=== PATIENT | male | born 2000 | race Caucasian/White ===

== ENCOUNTER 2025-03-24 08:37 | Outpatient (AMB) | payer OTHER, SELFPAY ==
--- NOTE | 2025-03-24 08:46 | A.OFFPC_ITS ---
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 Intake Note: patient here for new patient visit Litigation Attorney Required: No Allergies No Known Allergies Allergy (Verified 03/24/25 09:08) Medication List - Last Reconciled 03/24/25 by Nancy Castorena CNP No Known Home Meds Tobacco use date assessed: 03/24/25 Dental Screening Dental Screen Date: 03/24/25 Did you have a dental visit in the last 12 months?: Yes Did you have a dental problem in the last 6 months where you did not have access to dental care?: No Was dental information given to patient?: Patient has dentist HPI HPI Comments History of Present Illness Details 24-year-old male presents to establish c are. [facility]CP? [facility] Last office visit/CPE/labs - About 5 years Acute issue(s) - Reports diarrhea after consuming greas y foods and diary products with occasional abdominal pain. Denies bloody stool. Symptoms ongoing for a few years. - Reports forgetfulness with short-term memory recall daily since high school. He played football in High school for few years and banged his head during plays. Denies headache or other associated symptoms Past Medical History - GERD Surgical History - Torn right ACL repair Family History - Mom: Uterine cancer Social History - Nonsmoker. Does not vape. Drinks 2 bee rs once or twice monthly. Denies recreational drug use - Has been making healthy dietary choice s. Exercises routinely. Reports difficulty staying asleep, snores, and never had a sleep study, declines sleep study Health maintenance - Last eye exam was 8-9 months ago. Does not recall name of provider or practice. Record not currently available - Last dental visit was a month ago. - Last tetanus vaccine unknown - Has not been vaccinated for the flu ; declines vaccination Specialists - None PFSH Medical History (Updated 03/24/25 @ 09:36 by Nancy Castorena CNP) Torn ACL History of gastroesophageal reflux (GERD) Family History (Updated 03/24/25 @ 08:58 by CHENCHO Jones) Mother Uterus cancer Social History (Updated 03/24/25 @ 08:53 by CHENCHO Jones) Housing: House Patient Tobacco Use Status: Never used Tobacco e-Cigarette/Vaping Use: Never Used Second Hand Smoke Exposure: No service: No Current occupational status: student Current occupational exposures/hazards: No Cognitive needs: No Hearing needs: No Vision needs: No Questionnaire PHQ-9 Over the last 2 weeks, how often have you been bothered by any of the following problems? 1. Little interest or pleasure in doing things: not at all 2. Feeling down, depressed, or hopeless: not at all 3. Trouble falling or staying asleep, or sleeping too much: not at all 4. Feeling tired or having little energy: more than half the days 5. Poor appetite or overeating: not at all 6. Feeling bad about yourself - or that you are a failure or have let yourself or your family down: not at all 7. Trouble concentrating on things, such as reading the newspaper or watching television: not at all 8. Moving or speaking so slowly that other people could have noticed. Or the opposite - being so fidgety or restless that you have been moving around a lot more than usual: not at all 9. Thoughts that you would be better off or of hurting yourself in some way: not at all Total score: 2 Depression Screening Interpretation: Negative Depression Screening Done: Yes 48276 - PHQ-9 Billing: Yes Source: Developed by Drs. Miguel Angel Seaman, Luciana Flores, Bill Walker and colleagues, with an educational estefani from [employer]. Thrive Questionnaire Date Thrive assessed: 03/24/25 I am a: Patient What is your living situation today?: I have a steady place to live Within the past 12 months, did the food you bought not last and you didn't have the money to get more?: Never true Within the past 12 months, did you worry whether your food would run out before you got money to buy more?: Never true Do you have trouble paying for medicines?: No Do you have trouble getting transportation to medical appointments?: No Do you have trouble paying your heating and electricity bill?: No Do you have trouble taking care of your child, family member or friend?: No Do you have trouble with day-to-day activities such as bathing, preparing meals, shopping, managing finances, etc.?: No Are you currently unemployed and looking for a job?: No Are you interested in more education?: No Please select the resources that you would like help with: None Currently or been in a relationship where the following occur: No concerns r eported THRIVE Score: 0 AUDIT C Alcohol Use Questionnaire (AUDIT-C) 1. How often do you have a drink containing alcohol?: Monthly or less 2. How many drinks containing alcohol do you have on a typical day when you are drinking?: 1 or 2 3. How often do you have six or more drinks on one occasion?: Never Total Score: 1 Score Reviewed/Action Taken: Yes BARBARA-7 AMB Questionnaire BARBARA-7 Date BARBARA - 7 assessed: 03/24/25 Feeling nervous, anxious, or on edge: 0 = Not at all Not being able to stop or control worryin = Not at all Worrying too much about different things: 1 = Several days Trouble relaxin = Not at all Being so restless that it is hard to sit still: 0 = Not at all Becoming easily annoyed or irritable: 1 = Several days Feeling afraid as if something awful might happen: 0 = Not at all Total BARBARA-7 score (0-4 normal; 5-9 mild; 10-14 moderate; 15-21 severe): 2 Source: Developed by Drs. Miguel Angel Seaman, Luciana Flores, Bill Walker and colleagues, with an educational estefani from [employer]. BARBARA-7 Assessment Billing BARBARA-7 Assessment Tool: BARBARA-7 Assessment 57637 Review of Systems Const Details: Denies chills, Denies fatigue, Denies fever(s), Denies headache(s) and Denies weakness HEENT Denies change in vision, Denies dizziness, Denies headache(s), Denies hearing loss, Denies nasal congestion, Denies sinus pain, Denies sinus pressure and Denies sore throat Card Denies chest pain, Denies lightheadedness, Denies dyspnea and Denies other (palpitations) Resp Denies cough, Denies dyspnea and Denies wheezing GI Reports diarrhea, Denies abdominal pain, Denies melena, Denies hematochezia, Denies dyspepsia and Denies nausea Denies hematuria and Denies dysuria Musc Denies abnormal gait, Denies myalgias, Denies arthralgias, Denies numbness and Denies tingling Skin/Breast Denies rash, Denies unusual bruising and Denies wounds Neuro Denies abnormal gait, Denies dizziness, Denies headache(s), reports forgetfulness, Denies numbness, Denies Sensory deficit (Neuro), Denies tingling and Denies weakness Psych Reports forgetfulness, Denies anxiety, Denies depression Endo Denies cold intolerance, Denies fatigue, Denies heat intolerance, Denies polydipsia and Denies polyuria Michael/Lymph Denies easy bleeding and Denies easy bruising Aller/Immun Denies wheezing Physical exam (Primary Care) Vital Signs: Last Vital Signs Temp 97.9 F 03/24/25 08:54 Pulse 86 03/24/25 08:54 Resp 16 03/24/25 08:54 BP 117/58 L 03/24/25 08:54 Pulse Ox 97 03/24/25 08:54 Oxygen Delivery Method Room Air 03/24/25 08:54 BMI result Body Mass Index 43.1 Tobacco/Smoking Status: Tobacco use Status Tobacco use date assessed 03/24/25 03/24/25 08:54 Patient Tobacco Use Status Never used Tobacco 03/24/25 08:54 e-Cigarette/Vaping Use Never Used 03/24/25 08:54 PHQ-9: PHQ-9 Score PHQ-9: Total score 2 03/24/25 08:50 Depression Screening Interpretation: Negative Thrive Assessment: Date of Thrive Assessment Date Thrive assessed 03/24/25 03/24/25 08:50 Currently or been in a relationship where the following occur: No concerns reported Const Other: General: no acute distress, well developed, alert and awake Nutritional Appearance: well nourished Orientation/consciousness: patient oriented x3 HENMT Head: Yes normocephalic and Yes atraumatic Ears: hearing grossly normal bilaterally and TM's normal bilaterally General nose exam: Normal external nose present and Normal nares present Mouth: Normal oral and palatal mucosa present and moist mucous membranes Teeth and gingiva: dentition normal Throat: Yes oropharynx normal Eyes Pupils: Equal, round and reactive pupils present and Pupil accommodation reflex normal EOM: EOMs intact bilaterally Neck Neck: Yes normal visual inspection, Yes no lymphadenopathy and Yes trachea midline Thyroid: Thyroid normal Carotids: no bruits Lymphatic: no lymphadenopathy noted Chest Chest palpation & inspection: normal inspection of the chest Resp Effort & Inspection: normal respiratory effort Auscultation: clear to auscultation bilaterally Cardio Rate: regular rate Rhythm: regular rhythm Heart sounds: S1 normal heart sound present, S2 normal heart sound present, no gallops, no murmurs and no rubs Bruits: no abdominal aortic bruits and no carotid bruits GI Palpation (GI): No Abdominal aortic bruit present, Soft to palpation, nontender, No hepatosplenomegaly present and No Rebound tenderness present Auscultation: normal bowel sounds General: Yes no CVA tenderness Back/Spine/Pelvis Back: no CVA tenderness Cervical Spine: cervical ROM normal and No Cervical spine tenderness Thoracic/Lumbar Spine: thoraco-lumbar ROM normal, No pain with thoraco-lumbar ROM, No thoracic spinal tenderness and No lumbar spinal tenderness Skin General: warm and dry. Normal skin color. Normal skin turgor Lesions: no lesions Rashes: no rashes Trauma: no lacerations or abrasions Wounds: no wounds Nails: normal Neuro General: patient oriented x3, gait normal and CN's II-XI intact bilaterally Cranial nerves: Yes Equal, round and reactive pupils present Cognition (Neuro): normal cognition Gait exam (Neuro): Normal gait present Motor exam (neuro): 5/5 motor strength present throughout Sensory Exam: No Sensory deficit (Neuro) Deep tendon reflexes (DTR's): Right patellar reflex intensity grade: 2+ and Left patellar reflex intensity grade: 2+ Extrem General: Yes normal to inspection, No edema and No calf tenderness Psych Appearance: grossly normal Affect: normal affect Attitude: cooperative Thought process: Normal thought process present Coding Level of Care Code New Pt Level 4 (65205) New Pt Prev Care 18-39yr(57316 Diagnoses Normal physical examination, routine Z00.00 Sleep disturbance G47.9 Forgetfulness R68.89 Diarrhea R19.7 Laboratory tests ordered as part of a complete physical exam (CPE) Z00.00 Morbid obesity with BMI of 40.0-44.9, adult E66.01; Z68.41 Additional Codes BARBARA-7 Assessment Billing - BARBARA-7 Assessment Tool: BARBARA-7 Assessment 79291 ([id number]) PHQ-9 - 00141 - PHQ-9 Billing: Yes ([id number]) Assessment & Plan Assessment & Plan (1) Normal physical examination, routine: Code(s): Z00.00 - Encounter for general adult medical examination without abnormal findings Category: Medical Plan: No significant functional limitations noted. Healthy diet and routine exercise encouraged. Perform fasting lab work and follow-up for telehealth visit for labs review in 2-4 weeks. Return sooner with symptoms or concerns. Verbalized understanding and agreed with the plan. (2) Sleep disturbance: Code(s): G47.9 - Sleep disorder, unspecified Category: Medical Plan: Reports difficulty staying asleep, snores, and never had a sleep study, declines sleep study. Declines referral for sleep studies. Instructed on sleep hygiene. Routine exercise encouraged. Follow-up as needed. Verbalized understanding and agreed with the plan. (3) Forgetfulness: Code(s): R68.89 - Other general symptoms and signs Category: Medical Plan: Reports forgetfulness with short-term memory recall daily since high school. He played football in High school for few years and banged his head during plays. Denies headache or other associated symptoms. Normal physical exam. No focal neuro deficits. Will check labs, including thyroid and vitamin-D level and make changes as needed. Follow-up with worsening or new symptoms. Verbalized understanding and agreed with the plan. (4) Diarrhea: Code(s): R19.7 - Diarrhea, unspecified Category: Medical Plan: Reports diarrhea after consuming greasy foods and diary products with occasional abdominal pain. Denies bloody stool. Symptoms ongoing for a few years. Encouraged to avoid any/greasy foods and diary products. May have lactose intolerance. May substitute diary products with lactaid. Follow-up with worsening or new symptoms. May refer to Gastroenterology. Verbalized understanding and agreed with the plan. (5) Laboratory tests ordered as part of a complete physical exam (CPE): Code(s): Z00.00 - Encounter for general adult medical examination without abnormal findings Category: Medical Plan: Fasting labs ordered as part of a complete physical exam. Advised to fast for at least 10 hours before getting labs drawn. May drink water Verbalized understanding and agreed with treatment plan. (6) Morbid obesity with BMI of 40.0-44.9, adult: Code(s): E66.01 - Morbid (severe) obesity due to excess calories; Z68.41 - Body mass index [BMI] 40.0-44.9, adult Category: Medical Plan: He currently weighs 259 lb, BMI is 43.1. Declines referral to switchboard troubleshooter/dietitian or weight management clinic. Healthy diet/weight management encouraged. Follow-up as needed. Verbalized understanding and agreed with the plan. Orders: Orders Complete Blood Count Auto Diff Today Z00.00 - Encounter for general adult medical examination without abnormal findings Lipid Panel Today Z00.00 - Encounter for general adult medical examination without abnormal findings Microalbumin, Random (w Creat) Today Z00.00 - Encounter for general adult medical examination without abnormal findings Comprehensive [place]. Panel Fast Today Z00.00 - Encounter for general adult medical examination without abnormal findings TSH reflex Free T4 Today Z00.00 - Encounter for general adult medical examination without abnormal findings UA CC w/rflx Micro + Cult Today Z00.00 - Encounter for general adult medical examination without abnormal findings Vitamin D 25-OH Total Today Z00.00 - Encounter for general adult medical exami [facility] without abnormal findings
[2025-03-24 08:54] VITALS: BP 117/58; PULSE 86; RESP 16; TEMP 36.6; O2SAT 97; BMI 43.1
--- OUTSIDE RECORDS SUMMARY | 2025-03-24 08:58 | XMS_ITS | Clinical Summary ---
Author Organization [facility] [place] [facility] lin Address [address] [facility] [employer] [place] [address] Care Team Providers Care Manager Business Banking Name Role Phone Pcp, No Primary Care Provider [phone] Immunizations Immunization Administration Dates Next Due Boostrix (Tdap) Prefilled Syringe 01/23/2023 Social History Tobacco Use Types Packs/Day Years Used Date Smoking Tobacco: Never Assessed Sex and Gender Information Value Date Recorded Sex Assigned at Not on file Legal Sex Male 12:29 PM EST Gender Identity Not on file Sexual Orientation Not on file Plan of Treatment Health Maintenance Due Date Last Done Comments Depression: Screening Annually using PHQ-2/9 in Adults 18 yrs or above (or HM Modifier)([facility]) 2019 Hepatitis C Virus Infection in Adolescents and Adults: Screening (or Modifier) ([facility]) 2019 SDOH Screening Reminder: Annually for all adults ([facility]) 2019 Tobacco Smoking Cessation: i n Adults excluding Women: Behavioral and Pharmacotherapy Interventions ([facility]) 2019 Flu Vaccination: Yearly for ages 18mos through 64 years (or Modifier)([facility]) 01/02/2025 COVID-19 Vaccine Screening: Initial Series and Booster Status ([facility]) ( - 2024- season) 2025 06/22/2021, 10/15/2020, 09/17/2020 DTaP/Tdap/Td Vaccines ([facility]) (7 - Td or Tdap) 01/23/2033 01/23/2023, 08/26/2012, 09/10/2006, Additional history exists Zoster/Shingles Vaccine Series Screening: Adults aged 18+ yrs (or HM Modifiers)([facility]) (1 of 2) 2051 09/10/2006, 06/05/2002 Pneumococcal Vaccination Screening: Pts 0-19 & 19-49 yrs of age ([facility]) Aged Out No longer eligible based on patient's age to complete this topic Medical Devices Not on file Care Teams Manager Business Banking Relationship Specialty Start Date End Date Pcp, No PCP - General Family Medicine 01/23/23
--- OUTSIDE RECORDS SUMMARY | 2025-03-24 08:58 | XMS_ITS | Clinical Summary ---
Author Organization [facility] Address [address] [place] [phone] Phone Care Team Providers Care Pharmacy Intake Coordinator Name Role Phone Pcp, Unknown Primary Care Provider Unavailabl e Allergies No known active allergies Medications No known medications Family History Relation Status Comments Father Alive Mother Alive Social History Tobacco Use Types Packs/Day Years Used Date Smoking Tobacco: Never Smokeless Tobacco: Never Tobacco Cessation:Counseling Given: Not Answered Alcohol Use Standard Drinks/Week Comments Yes 0 (1 standard drink = 0.6 oz pur e alcohol) no Education Answer Date Recorded Are you interested in more education? Not on julian e 12/07/2023 Are you concerned about learning? Not on file 12/07/2023 No 12/07/2023 No 12/07/2023 Digital Access Answer Date Recorded No 12/07/2023 No 12/07/2023 Reliable internet access at home? Not on file 12/07/2023 Device with a working camera? Not on file Sex and Gender Information Value Date Recorded Sex Assigned at Not on file Legal Sex Male 12:04 PM EDT Gender Identity Not on file Sexual Orientation Not on file Last Filed Vital Signs Vital Sign Reading Time Taken Comments Blood Pressure 119/66 12/27/2023 11:20 AM EDT Pulse 63 12/27/2023 11:20 AM EDT Temperature - - Respiratory Rate - - Oxygen Saturation - - Inhaled Oxygen Concentration - - Weight 111.5 kg (245 lb 12.8 oz) 2023 11:20 AM EDT Height 166.4 cm (5' 5.5 ) 12/27/2023 11 :20 AM EDT Body Mass Index 40.28 12/27/2023 11:20 AM EDT Plan of Treatment Health Maintenance Due Date Last Done Comments Adult Td,Tdap Booster 2001 DEPRESSION SCREENING 2013 SMOKING Hx and SMOKELESS TOB ACCO SCREENING 2014 HPV VACCINES (1 - Male 3-dos e series) 2016 MENINGOCOCCAL VACCINES (B) ( 1 of 2 - Standard) 2017 HEPATITIS C SCREENING 2019 HIV ONE-TIME SCREENING (18-6 5 YEARS) 2019 INFLUENZA VACCINE (#1) 2025 COVID-19 VACCINE (1 - 2024-2 6 season) 2025 HEPATITIS A VACCINES Aged Out No long er eligible based on patient's age to complete this topic HIB VACCINES Aged Out No longer eligi ble based on patient's age to complete this topic MENINGOCOCCAL VACCINES (ACWY) Aged Out No longer eligible based on patient's age to complete this topic PNEUMOCOCCAL VACCINES (0-49 years) Aged Out No longer eligible based on patient's age to complete this topic Medical Devices Not on file Insurance [facility] [employer] DIRECT [facility] [employer] DIRECT [facility] [employer] DIRECT [facility] DIRECT [facility] [employer] DIRECT [facility] DIRECT Care Teams Pharmacy Intake Coordinator Relationship Specialty Start Date End Date Pcp, Unknown PCP - General 12/07/23 Additional Source Comments The information contained in this document represents components of the legal health record. It is not the complete legal health record.[facility]
== END 2025-03-24 09:26 | disposition home or self-care (01) ==
LOC: HO.HMCFM 08:38
PROVIDERS: PCP Nurse Practitioner Family; Visit Provider Nurse Practitioner Family
DX: Z00.00 Encounter for general adult medical examination without abnormal findings (principal); G47.9 Sleep disorder, unspecified; E66.01 Morbid (severe) obesity due to excess calories; Z68.41 Body mass index [BMI] 40.0-44.9, adult; R68.89 Other general symptoms and signs; R19.7 Diarrhea, unspecified

== ENCOUNTER → 2025-03-24 08:37 | Outpatient (BNVA) | payer OTHER, SELFPAY | PROVIDERS: PCP Nurse Practitioner Family; Visit Provider Nurse Practitioner Family | DX: Z00.00 Encounter for general adult medical examination without abnormal findings (principal); R10.9 Unspecified abdominal pain; G47.9 Sleep disorder, unspecified; R68.89 Other general symptoms and signs; R19.7 Diarrhea, unspecified; Z68.41 Body mass index [BMI] 40.0-44.9, adult | CPT/HCPCS: 96127; 99385 ==

== ENCOUNTER 2025-04-21 08:31 | Outpatient (REF) | payer OTHER, SELFPAY ==
[2025-04-21 12:00] LABS: MANUAL DIFF FLAG NO
[2025-04-21 12:07] LABS: Hematocrit 45.7 % (42.0-52.0); Hemoglobin 15.2 g/dl (14.0-18.0); Imm Gran Abs Auto 0.06 X10*3/uL (0.00-0.03); Imm Gran Pct Auto 0.6 % (0.0-0.4); Lymphocytes Absolute Auto 2.8 X10*3/uL (1.2-4.9); Mean Corpuscular HGB Conc 33.3 g/dl (31.0-36.0); Mean Corpuscular Hemoglobin 30.1 pg (27.0-33.0); Mean Corpuscular Volume 90.5 fL (80.0-98.0); NRBC Abs Auto 0.000 X10*3/uL (0.0-0.012); NRBC Pct Auto 0.0 /100WBC (0.0-0.2); Platelet Count 266 X10*3/uL (160-400); Red Blood Count 5.05 X10*6/uL (4.60-5.80); White Blood Count 10.2 X10*3/uL (4.8-10.8)
[2025-04-21 12:47] LABS: Alanine Aminotransferase 61 U/L (0-40); Albumin Level 4.7 g/dL (3.5-5.0); Alkaline Phosphatase 80 U/L (39-117); Anion Gap 13 (12-20); Aspartate Amino Transferase 38 U/L (5-37); Blood Urea Nitrogen 17 mg/dL (9-16); Calcium 9.7 mg/dL (8.4-10.2); Carbon Dioxide 26 mmol/L (22-29); Chloride 105 mmol/L (96-108); Cholesterol 205 mg/dL (<200); Estimated Glomerular Filt Rate > 60; HDL Cholesterol 37 mg/dL (>40); Potassium 3.6 mmol/L (3.3-5.1); Sodium 140 mmol/L (135-145); Total Protein 7.8 g/dL (6.5-8.0); Triglycerides 144 mg/dL (<150)
[2025-04-21 14:34] LABS: Appearance Urine Clear; Glucose Urine UA Negative (Negative); PH 5.5 (5.0-9.0); Specific Gravity - Urine 1.015 (1.005-1.025)
== END 2025-04-21 08:32 | disposition home or self-care (01) ==
LOC: HO.WFDLDS 08:31
PROVIDERS: Visit Provider Nurse Practitioner Family
DX: Z00.00 Encounter for general adult medical examination without abnormal findings (principal)
CPT/HCPCS: 36415; 80053; 80061; 81003; 82043; 82306; 82570; 84443; 85025

== ENCOUNTER 2025-04-28 11:55 | Outpatient (AMB) | payer OTHER, SELFPAY ==
--- NOTE | 2025-04-28 11:26 | MHC.PC.OV ---
Intake Visit Reasons: Tele 2-4 wks labs review Intake Note: patient here for 2-4 wks Telehealth follow up for labs review Pipe [employer] P[employer] Required: No Allergies No Known Allergies Allergy (Verified 04/28/25 11:27) Tobacco use date assessed: 04/28/25 Dental Screening Dental Screen Date: 04/28/25 Did you have a dental visit in the last 12 months?: Yes Did you have a dental problem in the last 6 months where you did not have access to dental care?: No Was dental information given to patient?: Patient has dentist HPI HPI Comments History of Present Illness Details 24-year-old male presents for a telehealth visit for review of recent lab results. He drinks 1-2 beers occasionally. His mom and dad has history of HLD. No acute symptoms at this time. [facility] Medical History (Updated 04/28/25 @ 12:12 by Nancy Castorena CNP) Torn ACL History of gastroesophageal reflux (GERD) Family History (Updated 03/24/25 @ 08:58 by CHENCHO Jones) Mother Uterus cancer Social History (Updated 03/24/25 @ 08:53 by CHENCHO Jones) Housing: House Patient Tobacco Use Status: Never used Tobacco e-Cigarette/Vaping Use: Never Used Second Hand Smoke Exposure: No service: No Current occupational status: student Current occupational exposures/hazards: No Cognitive needs: No Hearing needs: No Vision needs: No Questionnaire Thrive Questionnaire Date Thrive assessed: 03/24/25 BARBARA-7 AMB Questionnaire BARBARA-7 Date BARBARA - 7 assessed: 03/24/25 Source: Developed by Drs. Miguel Angel Seaman, Luciana Flores, Bill Walker and colleagues, with an educational estefani from [employer]. Review of Systems Const Details: Denies chills, Denies fatigue, Denies fever(s), Denies headache(s) and Denies weakness Cardiac Denies chest pain, Denies claudication, Denies leg edema, Denies lightheadedness, Denies palpitations, Denies dyspnea, Denies dyspnea on exertion, Denies orthopnea and Denies other (Loss of consciousness) Resp Denies cough, Denies excessive phlegm production, Denies dyspnea, Denies dyspnea on exertion, Denies snoring and Denies wheezing Physical exam (Primary Care) Tobacco/Smoking Status: Tobacco use Status Tobacco use date assessed 04/28/25 04/28/25 11:28 Patient Tobacco Use Status Never used Tobacco 04/28/25 11:28 e-Cigarette/Vaping Use Never Used 04/28/25 11:28 Thrive Assessment: Date of Thrive Assessment Date Thrive assessed 03/23/25 04/28/25 11:55 Const Other: Patient is alert and oriented x4 Telehealth Telehealth Telehealth Platform: Telephone Location of provider rendering services: practice address Location of patient: address on file Patient Identification confirmed using: Name, : Yes Telehealth method: voice only Patient verbally consented to treatment: Yes Patient verbally consented to billing insurance company: Yes Patient informed of any privacy concerns related to visit: Yes Coding Level of Care Code Tele Est Pt Level 3 (97248) Diagnoses Hypercholesterolemia E78.00 Transaminitis R74.01 Time Spent (min) 10 Assessment & Plan Assessment & Plan (1) Hypercholesterolemia: Code(s): E78.00 - Pure hypercholesterolemia, unspecified Category: Medical Plan: Recent total cholesterol and LDL levels are elevated, 205 and 140 respectively, HDL number is slightly low, 37. Advised to limit foods high in saturated fat and avoid the trans fat. Routine exercise encouraged. Fast for 10-12 hours, may drink water, and perform blood work a few days before next visit. Follow-up in 2 months for transfer of care with a new provider within the practice, hypercholesterolemia, and transaminitis. Return sooner with symptoms or concerns. Verbalized understanding and agreed with the plan. (2) Transaminitis: Code(s): R74.01 - Elevation of levels of liver transaminase levels Category: Medical Plan: Recent AST and ALT levels slightly elevated, 38 and 61 respectively. Likely hepatic steatosis. Healthy diet as weight management encouraged. Will recheck lipid panel levels in 2 months. Verbalized understanding and agreed with the plan. Orders: Orders Lipid Panel 2 Months E78.00 - Pure hypercholesterolemia, unspecified Liver Panel 2 Months R74.01 - Elevation of levels of liver transaminase levels
--- OUTSIDE RECORDS SUMMARY | 2025-04-28 15:41 | XMS_ITS | Clinical Summary ---
Author Organization [facility] Address [address] [place] [address] Phone Care Team Providers Care Finance Mgr Name Role Phone Pcp, Unknown Primary Care [...] topic Medical Devices Not on file Insurance [facility] [employer] DIRECT [facility] TranspondORCARE DIRECT [facility] CONNECTORCARE DIRECT [facility] DIRECT [facility] Care Teams Finance Mgr Relationship Specialty Start Date End Date Pcp, Unknown PCP - General 12/07/23 Additional Source Comments The information contained in this document represents components of the legal health record. It is not the complete legal health record.[facility]
== END 2025-04-28 13:45 | disposition home or self-care (01) ==
LOC: HO.HMCFM 11:55
PROVIDERS: PCP Nurse Practitioner Family; Visit Provider Nurse Practitioner Family
DX: E78.00 Pure hypercholesterolemia, unspecified (principal); R74.01 Elevation of levels of liver transaminase levels